=== PATIENT | female | born 1985 | race Caucasian/White ===

== ENCOUNTER → 2019-01-30 | Outpatient (CLI) | payer SELFPAY ==
[2019-01-30 12:11] LABS: HEMATOCRIT 41.9 % (37.0-47.0); MEAN CELL VOLUME 91 fl (80.0-100.0); MEAN CORPUSCULAR HEMOGLOBIN 30 pg (27.0-31.0); MEAN CORPUSCULAR HGB CONC 33 g/dl (33.0-37.0); MEAN PLATELET VOLUME 9.6 fl (7.4-10.4); PLATELET COUNT 309 K/mm3 (130-400); RED BLOOD COUNT 4.62 M/mm3 (4.10-5.30); REDCELL DISTRIBUTION WIDTH-CV 12.3 % (11.5-14.5)
[2019-01-30 12:19] LABS: COLLECTION METHOD CLEAN CATCH; PH 7 (5-8); SQUAMOUS EPITHELIAL 0-2 /hpf; URINE APPEARANCE Clear; URINE BACTERIA None Seen /hpf; URINE BILIRUBIN Negative (NEGATIVE); URINE BLOOD Negative (NEGATIVE); URINE COLOR Straw; URINE GLUCOSE 3+ (NEGATIVE); URINE KETONE Negative (NEGATIVE); URINE LEUKOCYTE ESTERASE Negative (NEGATIVE); URINE NITRATE Negative (NEGATIVE); URINE PROTEIN(semi-quant) Negative (NEGATIVE); URINE RBC None Seen /hpf; URINE UROBILINOGEN Negative (NEGATIVE); URINE WBC None Seen /hpf
[2019-01-30 12:20] LABS: ALBUMIN 4.3 gm/dL (3.5-5.0); BILIRUBIN,TOTAL 0.2 mg/dL (0.0-1.0); CALCIUM 8.9 mg/dL (8.4-10.2); CREATININE, serum 0.63 (0.52-1.25); POTASSIUM 5.2 mmol/L (3.4-5.0); TOTAL PROTEIN 7.5 gm/dL (6.4-8.2)
[2019-01-30 12:50] LABS: THYROID STIMULATING HORMONE 1.67 uIU/mL (0.465-4.680)
== END ==
LOC: COL.LAB 11:36
PROVIDERS: Family Medicine
DX: E10.9 Type 1 diabetes mellitus without complications (principal)

== ENCOUNTER 2019-06-12 19:32 | Emergency (ER) | payer SELFPAY ==
[~2019-06-12] VITALS: Ht 177.8 cm; Wt 90.9 kg
[2019-06-12 19:38] VITALS: BP 119/67; TEMP 97.7
[2019-06-12 20:20] VITALS: PULSE 85
== END 2019-06-12 20:26 | disposition home or self-care (01) ==
LOC: COL.ER 19:32
DX: T19.2XXA Foreign body in vulva and vagina, initial encounter (principal); E10.9 Type 1 diabetes mellitus without complications

== ENCOUNTER 2019-07-06 20:13 | Emergency (ER) | payer SELFPAY ==
[~2019-07-06] VITALS: Ht 177.8 cm; Wt 90.9 kg
[2019-07-06 20:20] VITALS: BP 103/67; PULSE 94; TEMP 98.1
[2019-07-06 21:25] LABS: ALBUMIN 3.9 gm/dL (3.5-5.0); BILIRUBIN,TOTAL 0.4 mg/dL (0.0-1.0); C-REACTIVE PROTEIN 1.7 mg/dL (0.0-0.9); CALCIUM 9.3 mg/dL (8.4-10.2); CREATININE, serum 0.69 (0.52-1.25); POTASSIUM 4.3 mmol/L (3.4-5.0); TOTAL PROTEIN 6.9 gm/dL (6.4-8.2)
[2019-07-06 21:28] LABS: BASO % 0.7 % (0.0-2.0); EOS # 0.1 (0.0-0.7); EOS % 1.2 % (0-4.0); GRAN # 3.5 (1.4-6.5); GRAN % 59.9 % (42.2-75.2); HEMATOCRIT 49.1 % (37.0-47.0); HEMOGLOBIN 16.9 g/dl (12.5-16.0); LYMPH # 1.8 (1.2-3.4); LYMPH % 31.5 % (20.0-51.0); MEAN CELL VOLUME 89 fl (80.0-100.0); MEAN CORPUSCULAR HEMOGLOBIN 31 pg (27.0-31.0); MEAN CORPUSCULAR HGB CONC 34 g/dl (33.0-37.0); MEAN PLATELET VOLUME 10.1 fl (7.4-10.4); MONO # 0.4 (0.1-0.6); MONO % 6.5 % (1.7-9.3); PLATELET COUNT 194 K/mm3 (130-400); REDCELL DISTRIBUTION WIDTH-CV 12.9 % (11.5-14.5)
[2019-07-06] MEDS ORDERED: PHENERGAN 25 TA25 MG PO (21:46)
[2019-07-06] MEDS ORDERED: DOXYCYCLINE 10100 MG PO (21:46)
[2019-07-06 22:17] LABS: COLLECTION METHOD CLEAN CATCH
[2019-07-06 22:23] LABS: PH 6 (5-8); SQUAMOUS EPITHELIAL 0-2 /hpf; URINE APPEARANCE Clear; URINE BACTERIA None Seen /hpf; URINE BILIRUBIN Negative (NEGATIVE); URINE BLOOD 1+ (NEGATIVE); URINE COLOR Yellow; URINE GLUCOSE 3+ (NEGATIVE); URINE KETONE Negative (NEGATIVE); URINE LEUKOCYTE ESTERASE Negative (NEGATIVE); URINE NITRATE Negative (NEGATIVE); URINE PROTEIN(semi-quant) Negative (NEGATIVE); URINE RBC 0-2 /hpf; URINE UROBILINOGEN Negative (NEGATIVE)
== END 2019-07-06 22:55 | disposition home or self-care (01) ==
LOC: COL.ER 20:13
PROVIDERS: Emergency Medicine
DX: R10.2 Pelvic and perineal pain (principal); Z98.890 Other specified postprocedural states
CPT/HCPCS: J0696; J1170; J1885; J2405; J7030

== ENCOUNTER 2019-07-08 18:19 | Emergency (ER) | payer SELFPAY ==
[~2019-07-08] VITALS: Ht 177.8 cm; Wt 90.9 kg
[~2019-07-08 18:19] MED LIST: DOXYCYCLINE 10100 MG PO; PHENERGAN 25 TA25 MG PO
[2019-07-08 18:24] VITALS: BP 99/59; TEMP 98
[2019-07-08 20:48] LABS: BASO # 0.1 (0.0-0.2); BASO % 0.7 % (0.0-2.0); EOS # 0.1 (0.0-0.7); EOS % 1.4 % (0-4.0); GRAN # 5.2 (1.4-6.5); GRAN % 58.2 % (42.2-75.2); HEMATOCRIT 37.6 % (37.0-47.0); HEMOGLOBIN 12.5 g/dl (12.5-16.0); LYMPH # 2.9 (1.2-3.4); LYMPH % 33.2 % (20.0-51.0); MEAN CELL VOLUME 91 fl (80.0-100.0); MEAN CORPUSCULAR HEMOGLOBIN 30 pg (27.0-31.0); MEAN CORPUSCULAR HGB CONC 33 g/dl (33.0-37.0); MEAN PLATELET VOLUME 10.2 fl (7.4-10.4); MONO # 0.6 (0.1-0.6); MONO % 6.2 % (1.7-9.3); PLATELET COUNT 243 K/mm3 (130-400); RED BLOOD COUNT 4.12 M/mm3 (4.10-5.30)
[2019-07-08] MEDS ORDERED: PERCOCET 325 MG1 TA2 PO (21:08)
[2019-07-08 22:20] VITALS: PULSE 81
== END 2019-07-08 22:20 | disposition home or self-care (01) ==
LOC: COL.ER 18:19
PROVIDERS: Emergency Medicine
DX: R10.31 Right lower quadrant pain (principal); E16.2 Hypoglycemia, unspecified
CPT/HCPCS: J0696; J0780; J1170; J1885; J7030; Q9967